=== PATIENT | male | born 1950 | race Caucasian/White ===

== ENCOUNTER → 2017-02-23 | Outpatient (CLI) | payer MEDICARE, OTHER ==
[~2017-02-23] MED LIST: ASPI-558 PO; CEPH-583 PO; CHOL100017 PO; ENAL10TA PO; FLUT16SP NAS; IOHEXOL 300 MG/ML 100ml INJECTION ONE; LEVO5TAB13 PO; METF-206 PO; MULT-806 PO; NORMAL SALINE 100 ML ONE; SALINE FLUSH 10ml SYRINGE ONE; SAWP1CAP PO; TERB250T11 PO; TORS10TA17 PO
--- NOTE | 2017-02-23 09:18 | DI ---
Indication: ITS.REASON: Z85.46 Personal history of malignant neoplasm of prostate PROCEDURE: CT CHEST/ABD/PELVIS WC: Encounter: Subsequent Comparison: None Technique: Axial CT images were performed through the chest, abdomen and pelvis after the administration of intravenous contrast. Coronal and sagittal two-dimensional reformats. Automated Exposure Control and Iterative Reconstruction dose reducing techniques were utilized. Contrast: Omnipaque 300 100 mL Findings: Chest: Two 3 mm right upper lobe pulmonary nodules on axial image #11 in the subpleural area. There are also intrapulmonary lymph nodes along the right major and minor fissures. Additional 3 mm noncalcified right middle lobe pulmonary nodule 6 mm nodule in the right lower lobe adjacent to a vascular branch on axial image 30. Subpleural 3 to 4 mm left lower lobe nodule on image #33. Motion artifact. No consolidative pneumonia, pleural effusion or pneumothorax. The central airways are patent. No axillary or mediastinal lymphadenopathy. Heart size is normal. No pericardial effusion. Coronary artery calcifications. Abdomen/pelvis: The liver appears normal. The gallbladder, spleen, pancreas and right adrenal gland are normal. Left adrenal gland contains a 2.5 cm indeterminate nodule measuring 22 Hounsfield units in density. The right kidney has a 5 to 6 mm interpolar area stone. No ureteral stones. The bladder is normal. There is a 7 mm stone in the left renal pelvis at the ureteropelvic junction with mild hydronephrosis. Enlarged left external iliac lymph node on axial image #90 measuring 1.6 cm in short axis. Couple mildly prominent right external iliac lymph nodes with one measuring up to 1.2 cm in short axis on image #79. No retroperitoneal adenopathy identified. No free fluid or evidence of a bowel obstruction. The appendix is normal. Bone windows show mild degenerative change in the spine. No lytic or blastic osseous lesions seen. Impression: 1. Bilateral external iliac adenopathy raising concern for metastatic disease. Comparison with any available prior exams would be helpful. 2. Multiple small pulmonary nodules could be due to granulomas or metastases. Continued attention is recommended on follow-up exams. 3. Bilateral nephrolithiasis with possible partial obstruction of the left ureteropelvic junction. 4. Indeterminate left adrenal nodule. .
--- NOTE | 2017-02-23 10:02 | DI ---
Indication: ITS.REASON: I82 DVT; C61 PROSTATE CA PROCEDURE: NM BONE SCAN, WHOLE BODY: Encounter: Subsequent Comparison: CT chest, abdomen and pelvis from today Technique: 27.3 mCi of Tc-99m MDP was administered intravenously. Anterior and posterior planar whole-body and spot images were obtained. FINDINGS: The scan demonstrates the expected normal biodistribution for the radiotracer. There is probable degenerative uptake seen in the shoulders, knees, feet and ankles. There is no abnormal radiotracer uptake to suggest bony metastasis. IMPRESSION: No evidence of metastatic disease to the skeleton. .
[2017-02-23 11:06] LABS: HCT - HEMATOCRIT 48.3 % (41-53); HGB - HEMOGLOBIN 15.6 GM/DL (13.5-17.5); MEAN CORPUSCULAR HGB 28.1 UUG (26-34); MEAN CORPUSCULAR HGB CONC(MCHC 32.3 GM/DL (31-37); MEAN PLATELET VOLUME 9.9 UM3 (9.4-12.4); RED BLOOD COUNT 5.55 M/MM3 (4.50-5.90); WBC - WHITE BLOOD COUNT 9.7 T/MM3 (4.5-11.0)
[2017-02-23 11:16] LABS: ALBUMIN/GLOBULIN RATIO 1.3 RATIO (1.1-2.2); ALKALINE PHOSPHATASE 88 U/L (38-126); ALT (SGPT) 27 U/L (21-72); ANION GAP 12 MEQ/L (5-15); AST (SGOT) 19 U/L (17-59); BUN/CREATININE RATIO 18 RATIO (6-26); CALCIUM 9.2 MG/DL (8.4-10.2); CHLORIDE 106 MEQ/L (98-107); CO2 - CARBON DIOXIDE 26 MEQ/L (22-30); CREATININE 0.9 MG/DL (0.8-1.5); GLOMERULAR FILTRATION RATE 84; GLUCOSE 102 MG/DL (75-110); LDH 363 U/L (313-618); POTASSIUM 4.7 MEQ/L (3.6-5); SODIUM 144 MEQ/L (134-144); TOTAL PROTEIN 7.2 G/DL (6.3-8.2)
[2017-02-23 11:18] LABS: BAND NEUTROPHILS # 0.1 T/MM3; LYMPHOCYTES # (MANUAL) 2.2 T/MM3 (1-4.8); MONOCYTES # (MANUAL) 0.1 T/MM3 (0-0.8); NEUTROPHILS #(MANUAL)-ABSOLUTE 7.3 T/MM3 (1.8-7.7); TOTAL CELLS COUNTED 100 %
== END ==
LOC: IMA 06:31
PROVIDERS: ATTEND Internal Medicine Hematology & Oncology
DX: C61 Malignant neoplasm of prostate (principal); I82.432 Acute embolism and thrombosis of left popliteal vein; R59.0 Localized enlarged lymph nodes; R91.8 Other nonspecific abnormal finding of lung field; N20.0 Calculus of kidney; E27.9 Disorder of adrenal gland, unspecified; Z79.82 Long term (current) use of aspirin; Z79.899 Other long term (current) drug therapy
CPT/HCPCS: 36415; 71260; 74177; 78306; 80053; 82378; 83090; 83615; 85007; 85027; 85240; 85246; 85300; 85303; 85306; 85307; 85390; 85397; 85610; 85613; 85670; 85730; 85732; 86146; 86147; 86301; A9503; J7050; Q9967; 81241